=== PATIENT | female | born 1950 | race Caucasian/White ===

== ENCOUNTER 2022-09-19 07:24 | Day surgery (SDC) | payer MEDICARE, BC ==
[2022-09-18 11:16] VITALS: BMI 25.7
[2022-09-19] MEDS ORDERED: Oxymetazoline HCl 0.05% ( 15 ML ) ONE (07:55)
[2022-09-19] MEDS ORDERED: Dexamethasone 20 MG/5 ML VIAL ONE (09:41)
[2022-09-19] MEDS ORDERED: Succinylcholine 200 MG/10 ml SYRINGE FS ONE (09:41)
[2022-09-19] MEDS ORDERED: Lidocaine 1% PF 5 ML VIAL ONE (09:41)
[2022-09-19] MEDS ORDERED: PROPOFOL 20 ML ONE ×2 (09:41→10:21)
[2022-09-19] MEDS ORDERED: Fentanyl 100 MCG/2 ML VIAL ONE (09:41)
[2022-09-19] MEDS ORDERED: CEFAZOLIN 1 GM VIAL ONE (09:45)
[2022-09-19] MEDS ORDERED: Lidocaine 1% (PF) 30 ML VIAL ONE (09:45)
[2022-09-19] MEDS ORDERED: EPINEPHrine 1 MG/ML AMP ONE (09:45)
[2022-09-19] MEDS ORDERED: Ondansetron PF 4 MG/2 ML Vial ONE (09:49)
[2022-09-19] MEDS ORDERED: ePHEDrine Sulfate 50 MG/10 ML VIAL ONE (10:27)
[2022-09-19] MEDS ORDERED: Glycopyrrolate 0.2 MG/ML 5 ML SYRINGE ONE ×2 (11:12→11:48)
[2022-09-19] MEDS ORDERED: PHENYLEPHRINE-NS 100 MCG/ML 10 ML SYRINGE ONE (11:12)
[2022-09-19] MEDS ORDERED: Labetalol HCl 100 MG/20 ML VIAL ONE (11:53)
[2022-09-19] MEDS ORDERED: Acetaminophen 500 MG TAB ONE (13:33)
== END 2022-09-19 14:00 | disposition home or self-care (01) ==
LOC: CSHSDC 07:24
PROVIDERS: ATTEND Otolaryngology Otolaryngic Allergy
PROC: 09BV0ZZ Excision of Left Ethmoid Sinus, Open Approach (ICD-10-PCS; principal; 2022-09-19)
DX: J32.9 Chronic sinusitis, unspecified (principal); J34.3 Hypertrophy of nasal turbinates; J32.4 Chronic pansinusitis; J34.89 Other specified disorders of nose and nasal sinuses; Z90.710 Acquired absence of both cervix and uterus; Z98.890 Other specified postprocedural states; Z88.6 Allergy status to analgesic agent
CPT/HCPCS: 30930; 31240; 31259; 31267; 31276; 61782; C2625; 88305; 88312; J0171; J0690; J1100; J2001; J2405; J2704; J3010